=== PATIENT | female | born 1975 | race African-American/Black ===

== ENCOUNTER 2016-08-16 10:23 | Day surgery (SDC) | payer OTHER ==
[2016-08-13 09:09] VITALS: BMI 39.0
[~2016-08-16 10:23] MED LIST: LEVOFLOXACIN 500 MG PREMIX BAG IVPB ONE
[2016-08-16] MEDS ORDERED: LEVOFLOXACIN 500 MG IVPB 100 ML IVPB ONE (10:27)
[2016-08-16] MEDS ORDERED: PROMETHAZINE HCL 25 MG/1 ML VIAL IVPUSH PRN (12:01)
[2016-08-16] MEDS ORDERED: ONDANSETRON 4 MG/2 ML VIAL IVPUSH PRN (12:01)
[2016-08-16] MEDS ORDERED: oxyCODONE HCL 5 MG TABLET PO PRN (12:01)
[2016-08-16] MEDS ORDERED: MIDAZOLAM HCL 2 MG/2 ML SINGLE DOSE VIAL ONE (12:08)
[2016-08-16] MEDS ORDERED: LACTATED RINGERS SOLUTION 1,000 ML IV SCH (12:15)
[2016-08-16] MEDS ORDERED: LEVOFLOXACIN 500 MG PREMIX BAG IVPB ONE (12:15)
[2016-08-16] MEDS ORDERED: DEXAMETHASONE SOD PHOSPHATE 4 MG/1 ML VIAL ONE (12:21)
[2016-08-16] MEDS ORDERED: LIDOCAINE HCL/PF 2% SDV 5ML VIAL ONE (12:21)
--- NOTE | 2016-08-16 13:49 | OP ---
Operative Note - Note: Operative Date: 08/16/16 Pre-Operative Diagnosis: left renal stone Operation: left eswl Findings: [id number] left renal stone Post-Operative Diagnosis: Same as Pre-op Surgeon: Joshua Carty Anesthesia: General
[2016-08-16] MEDS ORDERED: IBUPROFEN 400 MG TABLET (FP) PO ONE (14:32)
[2016-08-16 17:21] VITALS: BP 135/79; PULSE 81; TEMP 98
--- NOTE | 2016-08-17 08:05 | OP ---
DATE OF OPERATION: 08/16/2016 PREOPERATIVE DIAGNOSIS: Left renal stone. POSTOPERATIVE DIAGNOSIS: Left renal stone. PROCEDURE: Left extracorporeal shock wave lithotripsy. ATTENDING: Juan Luis Cuevas MD ANESTHESIA: General. OPERATION: The patient was brought in the operating room, placed in supine position on the operating room table. Ultrasonography with fluoroscopy was performed. A 7 mm x 7 mm left renal stone was identified. General anesthesia and intravenous Levaquin was administered. At this point, the patient underwent left extracorporeal shock wave lithotripsy. Excellent fragmentation of the stone was noted on real time ultrasonography and fluoroscopy. No complications were noted. The disposition of the patient was to the recovery room. JUAN LUIS CUEVAS M.D. [id number]
== END 2016-08-16 15:45 | disposition home or self-care (01) ==
LOC: JASU-SURG 10:23
PROVIDERS: ATTEND Urology
PROC: 0TF4XZZ Fragmentation in Left Kidney Pelvis, External Approach (ICD-10-PCS; principal; 2016-08-16 11:15)
DX: N20.0 Calculus of kidney (principal)
CPT/HCPCS: 84703; 94760

== ENCOUNTER 2016-10-25 08:24 | Day surgery (SDC) | payer OTHER ==
[2016-10-22 13:19] VITALS: BMI 38.1
[2016-10-25] MEDS ORDERED: MIDAZOLAM HCL 2 MG/2 ML SINGLE DOSE VIAL ONE (09:20)
[2016-10-25] MEDS ORDERED: LIDOCAINE HCL/PF 2% SDV 5ML VIAL ONE (09:21)
[2016-10-25] MEDS ORDERED: ONDANSETRON 4 MG/2 ML VIAL IVPUSH PRN (10:34)
[2016-10-25] MEDS ORDERED: PROMETHAZINE HCL 25 MG/1 ML VIAL IVPUSH PRN (10:34)
[2016-10-25] MEDS ORDERED: PROPOFOL 20 ML ONE (10:43)
[2016-10-25] MEDS ORDERED: LACTATED RINGERS SOLUTION 1,000 ML IV SCH (10:45)
[2016-10-25] MEDS ORDERED: LEVOFLOXACIN 500 MG IVPB 100 ML IVPB ONE (10:54)
[2016-10-25] MEDS ORDERED: LEVOFLOXACIN 500 MG PREMIX BAG IVPB ONE (10:55)
[2016-10-25] MEDS ORDERED: DEXAMETHASONE SOD PHOSPHATE 4 MG/1 ML VIAL ONE (11:04)
[2016-10-25] MEDS ORDERED: KETOROLAC TROMETHAMINE 30 MG/1 ML VIAL ONE (11:44)
[2016-10-25 13:30] VITALS: TEMP 97.9
[2016-10-25] MEDS ORDERED: ACETAMINOPHEN 500 MG TABLET (FP) PO ONE (14:19)
[2016-10-25] MEDS ORDERED: ONDANSETRON 4 MG/2 ML VIAL ONE (15:17)
[2016-10-25 16:30] VITALS: BP 111/77; PULSE 80
--- NOTE | 2016-10-25 16:54 | OP ---
Operative Note - Note: Operative Date: 10/18/16 Pre-Operative Diagnosis: gross hematuria/left renal colic Operation: cystoscopy/bilateral retrograde pyelogram/left ureteroscopic laser lithotripys and stent placement Findings: 8-10 mm left upj stone Post-Operative Diagnosis: Other (left ureteral/upj stone) Surgeon: Joshua Carty Anesthesia: General Operative Report Dictated: Yes
== END 2016-10-25 16:15 | disposition home or self-care (01) ==
LOC: JASU-SURG 08:24
PROVIDERS: ATTEND Urology
PROC: 0TF78ZZ Fragmentation in Left Ureter, Via Natural or Artificial Opening Endoscopic (ICD-10-PCS; principal; 2016-10-25 10:00)
PROC: 0T778DZ Dilation of Left Ureter with Intraluminal Device, Via Natural or Artificial Opening Endoscopic (ICD-10-PCS; 2016-10-25 10:00)
DX: N20.1 Calculus of ureter (principal); R31.0 Gross hematuria
CPT/HCPCS: 76000-TC; 84703; 94760

== ENCOUNTER 2017-06-20 12:04 | Day surgery (SDC) | payer OTHER ==
[2017-06-16 17:41] VITALS: BMI 39.0
[2017-06-20] MEDS ORDERED: MIDAZOLAM HCL 2 MG/2 ML SINGLE DOSE VIAL ONE ×2 (14:17)
[2017-06-20] MEDS ORDERED: ONDANSETRON 4 MG/2 ML VIAL IVPUSH PRN (15:04)
[2017-06-20] MEDS ORDERED: PROMETHAZINE HCL 25 MG/1 ML VIAL IVPUSH PRN (15:04)
[2017-06-20] MEDS ORDERED: oxyCODONE HCL 5 MG TABLET PO PRN (15:04)
[2017-06-20] MEDS ORDERED: LACTATED RINGERS SOLUTION 1,000 ML IV SCH (15:15)
[2017-06-20 15:36] VITALS: TEMP 98
--- NOTE | 2017-06-20 16:18 | OP ---
Operative Note - Note: Operative Date: 06/20/17 Pre-Operative Diagnosis: Right kidney stone Operation: Right ESWL Findings: Right pelvis 6 mm kidney stone Surgeon: Joshua Carty Anesthesia: Fractional
[2017-06-20 18:20] VITALS: BP 120/80; PULSE 80
--- NOTE | 2017-06-20 23:19 | OP ---
DATE OF OPERATION: 06/20/2017 PREOPERATIVE DIAGNOSIS: Right renal stone. POSTOPERATIVE DIAGNOSIS: Right renal stone. PROCEDURE: Right extracorporeal shock wave lithotripsy. ATTENDING: Juan Luis Cuevas MD ANESTHESIA: Fractional. DESCRIPTION OF OPERATION: Patient was brought in the operating room, placed in supine position on the operating room table. Ultrasonography and fluoroscopy were performed. A 6-mm right-sided stone in the renal pelvis was identified. Shock wave lithotripsy was then started once anesthesia and antibiotics were administered. Next, 3000 impulses at 20 joules of power were administered to the stone. Excellent fragmentation was noted under real-time ultrasonography and fluoroscopy. The patient tolerated the procedure very well. The disposition of the patient was to the recovery room. JUAN LUIS CUEVAS M.D. /[id number]
== END 2017-06-20 18:05 | disposition home or self-care (01) ==
LOC: JASU-SURG 12:04
PROVIDERS: ATTEND Urology
PROC: 0TF3XZZ Fragmentation in Right Kidney Pelvis, External Approach (ICD-10-PCS; principal; 2017-06-20 13:15)
DX: N20.0 Calculus of kidney (principal)
CPT/HCPCS: 84703; 94760

== ENCOUNTER 2017-07-18 09:24 | Day surgery (SDC) | payer OTHER ==
[2017-07-15 09:42] VITALS: BMI 38.5
[2017-07-18] MEDS ORDERED: MIDAZOLAM HCL 2 MG/2 ML SINGLE DOSE VIAL ONE ×3 (11:22→11:28)
[2017-07-18 12:11] VITALS: TEMP 97.7
--- NOTE | 2017-07-18 12:29 | OP ---
Operative Note - Note: Operative Date: 07/18/17 Pre-Operative Diagnosis: Left kidney stone; Operation: Left ESWL Findings: 7 mm upper pole left kidney stone Post-Operative Diagnosis: Same as Pre-op Surgeon: Joshua Carty Anesthesia: Fractional
[2017-07-18 14:31] VITALS: BP 126/85; PULSE 88
--- NOTE | 2017-07-18 20:57 | OP ---
DATE OF OPERATION: 07/18/2017 PREOPERATIVE DIAGNOSIS: Left renal stone. POSTOPERATIVE DIAGNOSIS: Left renal stone. PROCEDURE: Left extracorporeal shock wave lithotripsy. ATTENDING: Juan Luis Cuevas MD ANESTHESIA: Fractional. DESCRIPTION OF OPERATION: The patient was brought in the operating room, placed in supine position on the operating room table. Ultrasonography and fluoroscopy were performed. A left upper pole stone was noted which measured 7 mm. At this point, fractional anesthesia and preoperative antibiotics were administered. Extracorporeal shock wave lithotripsy was then started; 2500 impulses at 20 joules of power were administered to the stone with excellent fragmentation noted under real-time ultrasonography and fluoroscopy. The patient tolerated the procedure very well. There were no complications noted. The disposition of the patient was to the recovery room. JUAN LUIS CUEVAS M.D. [id number]
== END 2017-07-18 14:48 | disposition home or self-care (01) ==
LOC: JASU-SURG 09:24
PROVIDERS: ATTEND Urology
PROC: 0TF4XZZ Fragmentation in Left Kidney Pelvis, External Approach (ICD-10-PCS; principal; 2017-07-18 11:00)
DX: N20.0 Calculus of kidney (principal)
CPT/HCPCS: 84703

== ENCOUNTER 2018-08-14 11:23 | Day surgery (SDC) | payer OTHER ==
[2018-08-10 15:37] VITALS: BMI 40.2
[~2018-08-14 11:23] MED LIST changes: -LEVOFLOXACIN 500 MG PREMIX BAG IVPB ONE; +ONDANSETRON 4 MG/2 ML VIAL IVPUSH PRN; +oxyCODONE HCL 5 MG TABLET PO PRN
[2018-08-14] MEDS ORDERED: MIDAZOLAM HCL 2 MG/2 ML SINGLE DOSE VIAL ONE ×2 (12:27→13:01)
--- NOTE | 2018-08-14 13:25 | OP ---
Operative Note - Note: Operative Date: 08/14/18 Pre-Operative Diagnosis: R renal stone Operation: Right ESWL Implants: 5 mm upper pole renal stone Post-Operative Diagnosis: Same as Pre-op Surgeon: Joshua Carty Anesthesia: Fractional Estimated Blood Loss (mls): 0 Operative Report Dictated: Yes
[2018-08-14] MEDS ORDERED: ACETAMINOPHEN 325 MG TABLET (FP) ONE (14:38)
[2018-08-14] MEDS ORDERED: ACETAMINOPHEN 325 MG TABLET (FP) PO ONE (14:45)
[2018-08-14] MEDS ORDERED: ACETAMINOPHEN 500 MG TABLET (FP) PO ONE (15:00)
[2018-08-14 15:13] VITALS: BP 124/83; PULSE 81; TEMP 98
--- NOTE | 2018-08-14 16:27 | OP ---
DATE OF OPERATION: 08/14/2018 PREOPERATIVE DIAGNOSIS: Right renal stones. POSTOPERATIVE DIAGNOSIS: Right renal stones. PROCEDURE: Right extracorporeal shockwave lithotripsy. ATTENDING: Juan Luis Carty M.D. ANESTHESIA: Fractional. DESCRIPTION OF PROCEDURE: Patient was brought in the operating room, placed in a supine position on the operating room table. Ultrasonography and fluoroscopy were performed. A 5-mm right upper pole stone was identified. anesthesia and preoperative antibiotics were administered. Shockwave lithotripsy was then performed without complications. Excellent fragmentation of the stone was noted. No complications were noted. DISPOSITION: Patient to the recovery room. JUAN LUIS CUEVAS M.D. [id number]
== END 2018-08-14 15:00 | disposition home or self-care (01) ==
LOC: JASU-SURG 11:23
PROVIDERS: ATTEND Urology
PROC: 0TF3XZZ Fragmentation in Right Kidney Pelvis, External Approach (ICD-10-PCS; principal; 2018-08-14 12:30)
DX: N20.0 Calculus of kidney (principal)
CPT/HCPCS: 84703

== ENCOUNTER 2023-01-24 04:21 | Day surgery (SDC) | payer OTHER ==
[2023-01-20 15:29] VITALS: BMI 40.8
[2023-01-24] MEDS ORDERED: FENTANYL CITRATE/PF 50 MCG/ML VIAL ONE (14:25)
[2023-01-24] MEDS ORDERED: MIDAZOLAM HCL 2 MG/2 ML SINGLE DOSE VIAL ONE (14:25)
[2023-01-24] MEDS ORDERED: KETOROLAC TROMETHAMINE 30 MG/1 ML VIAL ONE (14:25)
[2023-01-24 15:09] VITALS: TEMP 97.8
[2023-01-24 16:21] VITALS: BP 132/90; PULSE 84; RESP 20
== END 2023-01-24 16:10 | disposition home or self-care (01) ==
LOC: JASU-SURG 04:21
PROVIDERS: ATTEND Urology
PROC: 0TF3XZZ Fragmentation in Right Kidney Pelvis, External Approach (ICD-10-PCS; principal; 2023-01-24 14:30)
DX: N20.0 Calculus of kidney (principal)
CPT/HCPCS: 81025

== ENCOUNTER 2023-09-19 04:29 | Day surgery (SDC) | payer OTHER ==
[2023-09-16 12:51] VITALS: BMI 43.4
[2023-09-19] MEDS ORDERED: ONDANSETRON 4 MG/2 ML VIAL ONE (16:34)
[2023-09-19] MEDS ORDERED: MIDAZOLAM HCL 2 MG/2 ML SINGLE DOSE VIAL ONE (16:49)
[2023-09-19 17:50] VITALS: RESP 18
[2023-09-19 18:52] VITALS: BP 137/85; PULSE 87; TEMP 97.3
== END 2023-09-19 18:35 | disposition home or self-care (01) ==
LOC: JASU-SURG 04:29
PROVIDERS: ATTEND Urology
PROC: 0TF4XZZ Fragmentation in Left Kidney Pelvis, External Approach (ICD-10-PCS; principal; 2023-09-19 17:00)
DX: N20.0 Calculus of kidney (principal)

== ENCOUNTER 2023-12-26 05:14 | Day surgery (SDC) | payer OTHER ==
[2023-12-22 11:34] VITALS: BMI 43.4
[2023-12-26] MEDS ORDERED: MIDAZOLAM HCL 2 MG/2 ML SINGLE DOSE VIAL ONE (12:59)
[2023-12-26 13:47] VITALS: RESP 18
[2023-12-26 15:47] VITALS: BP 137/90; PULSE 85; TEMP 98.4
== END 2023-12-26 15:25 | disposition home or self-care (01) ==
LOC: JASU-SURG 05:14
PROVIDERS: ATTEND Urology
PROC: 0TF3XZZ Fragmentation in Right Kidney Pelvis, External Approach (ICD-10-PCS; principal; 2023-12-26 13:18)
DX: N20.0 Calculus of kidney (principal)